=== PATIENT | female | born 1985 | race Caucasian/White ===

== ENCOUNTER 2023-01-17 08:07 | Outpatient (CLI) | payer OTHER, SELFPAY ==
--- NOTE | ~2023-01-17 | XR_ITS ---
EXAM: XR pelvis 1-2V DATE: 01/17/2023 08:37 HISTORY: PATIENT STATES THERE iS A NEEDLE IN LEFT GROIN AREA . COMPARISON: None available. FINDINGS: Normal mineralization. IUD. No fracture or dislocation. No lytic or blastic lesion. Joint spaces are maintained. No erosion or periosteal change. Soft tissues within normal limits. IMPRESSION: IUD, in good position. No other radiopaque foreign body detected. Reviewed, dictated and finalized at location K.
== END 2023-01-17 08:08 | disposition home or self-care (01) ==
LOC: ANHIMG 08:14
PROVIDERS: PCP Nurse Practitioner Adult Health; Visit Provider Nurse Practitioner Adult Health
DX: S30.851A Superficial foreign body of abdominal wall, initial encounter (principal); X58.XXXA Exposure to other specified factors, initial encounter; Z97.5 Presence of (intrauterine) contraceptive device
CPT/HCPCS: 72170

== ENCOUNTER 2023-08-12 15:54 | Emergency (ER) | payer OTHER, SELFPAY ==
--- NOTE | ~2023-08-12 | XR_ITS ---
EXAMINATION: XR finger 5th LT min 2V DATE: 08/12/2023 17:39 INDICATION: Pain and swelling at the left fifth digit TECHNIQUE: Dorsal palmar, lateral and oblique views of the left fifth digit were obtained COMPARISON: None FINDINGS: Alignment is normal. No fracture. 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 No erosions to suggest inflammatory arthritis. IMPRESSION: 1. Mild osteoarthritis at the interphalangeal joints and fourth and fifth digits. No acute osseous ab normalities. Reviewed, dictated and finalized at location A. IMPRESSION: 1. Mild osteoarthritis at the interphalangeal joints and fourth and fifth digit s. No acute osseous abnormalities.
--- NOTE | ~2023-08-12 | US_ITS ---
EXAMINATION: US venous doppler LE DATE: 08/12/2023 18:00 INDICATION: Right lower limb pain and swelling TECHNIQUE: Grayscale ultrasound images without and with compression and Doppler ultrasound images of the right lower extremity veins were obtained. COMPARISON: None. FINDINGS: The visualized portions of right common femoral vein, profunda (deep) femoral vein, femoral vein, pop liteal vein, peroneal trunk, posterior tibial veins, peroneal veins, gastrocnemius vein and greater s aphenous vein outflow are patent. IMPRESSION: 1. No deep venous thrombosis in the right lower limb. Reviewed, dictated and finalized at location A.
--- NOTE | ~2023-08-12 | XR_ITS ---
EXAMINATION: XR knee RT min 4V DATE: 08/12/2023 17:39 INDICATION: Right knee pain and swelling TECHNIQUE: Anteroposterior, 2 oblique and crosstable lateral views of the right knee were obtained COMPARISON: None. FINDINGS: Alignment is normal. No fracture. Joint spaces appear normal on nonweightbearing imaging. Moderate-s ized right knee joint effusion without evident layering lipohemarthrosis. Soft tissue swelling with s ubcutaneous edema at the lateral aspect of the calf. IMPRESSION: 1. Moderate sized right knee joint effusion. No osseous abnormality. Reviewed, dictated and finalized at location A.
[2023-08-12 15:58] VITALS: BP 117/42; PULSE 86; RESP 20; TEMP 36.6; O2SAT 100
--- NOTE | 2023-08-12 17:21 | ED.LOWEXIN ---
HPI - Extremity Injury (Lower) General Chief Complaint: Extremity Injury, Lower Stated Complaint: knee pain x 1 month Time Seen by Provider: 08/12/23 16:53 Source: patient Mode of arrival: ambulatory Limitations: no limitations History of Present Illness HPI Narrative: This is a 37 year old female that presents to the ER for two complaints. Reports right knee pain since a fall about a month ago. Reports falling onto her right knee. She did not see anyone after this incident. Initially she thought the pain was getting better, but it worsened again recently which prompted her to be seen. Reports swelling of the knee. Denies fever or erythema of the knee. Also reports left fifth finger swelling and redness that has been ongoing for several months. Reports history of a bone infection in this finger which concerned her and prompted her to be seen. Denies decreased ROM or numbness. Related Data Allergies Allergy/AdvReac Type Severity Reaction Status Date / Time escitalopram Allergy Unknown Hives Unverified 08/12/23 15:55 Sulfa (Sulfonamide Allergy Unknown Hives Unverified 08/12/23 15:55 Antibiotics) sulfamethoxazole Allergy Unknown Hives Unverified 08/12/23 15:55 trimethoprim Allergy Unknown Hives Unverified 08/12/23 15:55 Review of Systems Review of Systems: CONSTITUTIONAL: Denies fever SKIN: Denies rash MUSCULOSKELETAL: Reports joint pain, and myalgia. NEUROLOGIC: Denies numbness All systems reviewed & are unremarkable except as noted in HPI and below PMFSH Past Medical History Medical History (Updated 08/12/23 @ 19:38 by Anjali Miller PA-C) History of drug abuse Social History Social History (Updated 08/12/23 @ 17:26 by Anjali Miller PA-C) Substance use: former Exam Narrative: GENERAL: Well-appearing, well-nourished, and in no acute distress. HEAD: Normocephalic, atraumatic. EYES: EOMI. CHEST: No respiratory distress. HEART: Regular rate EXTREMITIES: Normal range of motion. Mild edema about the right knee anteriorly without erythema. Left fifth finger with mild overlying redness and swelling. Normal DP and radial pulses. SKIN: Warm, dry, no rash. NEURO: No focal deficits. Alert and oriented x3. PSYCH: Normal mood and affect Course Vital Signs Vital signs: Vital Signs Temperature 97.9 F 08/12/23 15:58 Pulse Rate 86 08/12/23 15:58 Respiratory Rate 20 08/12/23 15:58 Blood Pressure 117/42 L 08/12/23 15:58 Pulse Oximetry 100 08/12/23 15:58 Oxygen Delivery Room Air 08/12/23 15:58 Temperature 97.9 F 08/12/23 15:58 Pulse Rate 86 08/12/23 15:58 Respiratory Rate 20 08/12/23 15:58 Blood Pressure 117/42 L 08/12/23 15:58 Pulse Oximetry 100 08/12/23 15:58 Oxygen Delivery Room Air 08/12/23 15:58 MDM - Extremity Injury (Lower) Lab Data 08/12/23 19:07 08/12/23 19:07 Labs: Lab Results 08/12/23 Range/Units 19:07 WBC 3.5 L (4.5-10.0) K/mm3 RBC 4.08 L (4.2-5.4) M/mm3 Hgb 11.6 L (12.0-15.0) g/dL Hct 33.9 L (37.0-47.0) % MCV 83.1 (80-100) fl MCH 28.4 (26-34) pg MCHC 34.2 (32-36) g/dl RDW 12.9 (11.5-14.5) % Plt Count 231 (150-375) k/mm3 MPV 9.4 (7.4-10.4) fl Immature Gran % (Auto) 0.3 (0-0.5) % Neut % (Auto) 46.9 (45.5-73.1) % Lymph % (Auto) 38.7 (18.3-44.2) % Ashe % (Auto) 11.0 H (2.6-8.5) % Eos % (Auto) 2.3 (0-4.4) % Baso % (Auto) 0.8 (0.2-1.2) % Lymph # (Auto) 1.37 (0.9-3.2) K/mm3 Ashe # (Auto) 0.4 (0.1-0.6) K/mm3 Eos # (Auto) 0.1 (0-0.3) K/mm3 Baso # (Auto) 0.0 (0.0-0.1) K/mm3 Abs Immat Gran (auto) 0.01 (0.00-0.031) K/mm3 Absolute Neuts (auto) 1.7 (1.3-6.7) K/mm3 Absolute Nucleated RBC 0.000 (0.0-0.012) K/mm3 Nucleated RBC % 0.0 (0.0-0.2) % ESR Pending PT 13.1 (11.1-14.7) Seconds INR 1.0 APTT 30.6 (22.3-36.8) Seconds Sodium 135 L (137-145) mmol/L Potassium 3.8 (3.4-5.0) mmol/L Chloride 102 (98-107) mmol/L Carbon
[2023-08-12 19:14] LABS: Basophils Percent Auto 0.8 % (0.2-1.2); Eosinophils Absolute Auto 0.1 K/mm3 (0-0.3); Eosinophils Percent Auto 2.3 % (0-4.4); Hematocrit 33.9 % (37.0-47.0); Hemoglobin 11.6 g/dL (12.0-15.0); Immature Granulocyte Absolute 0.01 K/mm3 (0.00-0.031); Immature Granulocyte Percent A 0.3 % (0-0.5); Lymphocytes Absolute Auto 1.37 K/mm3 (0.9-3.2); Lymphocytes Percent Auto 38.7 % (18.3-44.2); Mean Corpuscular HGB Conc 34.2 g/dl (32-36); Mean Corpuscular Hemoglobin 28.4 pg (26-34); Mean Corpuscular Volume 83.1 fl (80-100); Mean Platelet Volume 9.4 fl (7.4-10.4); Monocytes Absolute Auto 0.4 K/mm3 (0.1-0.6); Neutrophils Absolute Auto 1.7 K/mm3 (1.3-6.7); Neutrophils Percent Auto 46.9 % (45.5-73.1); Platelet Count Result 231 k/mm3 (150-375); Red Blood Count 4.08 M/mm3 (4.2-5.4); Red Cell Distribution Width 12.9 % (11.5-14.5); White Blood Count 3.5 K/mm3 (4.5-10.0)
[2023-08-12 19:24] LABS: Prothrombin Time 13.1 Seconds (11.1-14.7)
[2023-08-12 19:25] LABS: Partial Thromboplastin Time 30.6 Seconds (22.3-36.8)
[2023-08-12 19:26] LABS: Anion Gap 7 mmol/L (4-12); Blood Urea Nitrogen 15 mg/dL (7-17); CRP 0.7 mg/dL (<1.0); Calcium 9.3 mg/dL (8.4-10.2); Carbon Dioxide 26 mmol/L (22-30); Chloride 102 mmol/L (98-107); Estimated CRCL calculation 91 ml/min; Estimated Glomerular Filt Rate > 60; Glucose 91 mg/dL (65-110); Potassium 3.8 mmol/L (3.4-5.0); Sodium 135 mmol/L (137-145)
[2023-08-12 19:46] LABS: Erythrocyte Sedimentation Rate 37 mm/hr (0-20)
[2023-08-12 20:04] VITALS: BP 127/95; PULSE 81; RESP 16; O2SAT 98
== END 2023-08-12 20:06 | disposition home or self-care (01) ==
PROVIDERS: Emergency Provider Physician Assistant
DX: S83.91XA Sprain of unspecified site of right knee, initial encounter (principal); W19.XXXA Unspecified fall, initial encounter; L03.012 Cellulitis of left finger
CPT/HCPCS: 36415; 73140; 73564; 80048; 85025; 85610; 85652; 85730; 86140; 93971; 99284

== ENCOUNTER 2024-02-07 09:04 | Emergency (ER) | payer OTHER, SELFPAY ==
[2024-02-07 09:05] VITALS: BP 108/78; PULSE 90; RESP 18; TEMP 36.4; O2SAT 98
--- NOTE | 2024-02-07 09:16 | PC.NURSE ---
Patient to desk stating, with a wait like this. I'm going to go try [facility] . Patient ambulatory out of ED with steady gait and in no acute or obvious distress.
== END 2024-02-07 09:35 | disposition left against medical advice (07) ==
LOC: ANHED 09:26
DX: S29.9XXA Unspecified injury of thorax, initial encounter (principal)
CPT/HCPCS: 99199

== ENCOUNTER 2024-02-08 08:32 | Emergency (ER) | payer OTHER, SELFPAY ==
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
[2024-02-08 08:47] VITALS: BP 106/70; PULSE 94; RESP 18; TEMP 36.7; O2SAT 96
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
[2024-02-08 10:34] VITALS: BP 132/89; PULSE 88; RESP 14; O2SAT 100
[2024-02-08 14:30] LABS: BEDSIDEPREGUCG Negative (Negative)
== END 2024-02-08 10:35 | disposition home or self-care (01) ==
PROVIDERS: Emergency Provider Physician Assistant
DX: S16.1XXA Strain of muscle, fascia and tendon at neck level, initial encounter (principal); S39.92XA Unspecified injury of lower back, initial encounter; E04.1 Nontoxic single thyroid nodule; M47.816 Spondylosis without myelopathy or radiculopathy, lumbar region; V49.40XA Driver injured in collision with unspecified motor vehicles in traffic accident, initial encounter
CPT/HCPCS: 72125; 72131; 81025; 99284